=== PATIENT | male | born 1995 ===

== ENCOUNTER → 2017-12-09 | Outpatient (REF) | payer BC, OTHER ==
[2017-12-09 13:50] LABS: PLATELET COUNT, AUTOMATED 244 K/uL (150-450)
== END ==
LOC: ZZSTITCHES 13:34
PROVIDERS: ATTEND Physician Assistant
DX: F41.9 Anxiety disorder, unspecified (principal); R25.2 Cramp and spasm
CPT/HCPCS: 82040; 82247; 82310; 82374; 82435; 82565; 82947; 83735; 84075; 84132; 84155; 84295; 84443; 84450; 84460; 84520; 85025